=== PATIENT | female | born 1965 | race Caucasian/White ===

== ENCOUNTER → 2020-02-08 | Outpatient (CLI) | payer OTHER ==
--- NOTE | 2020-02-09 11:38 | MM ---
Reason for exam: screening (asymptomatic). Last mammogram was performed 1 year and 6 months ago. History: Patient is postmenopausal. Physical Findings: A clinical breast exam by your physician is recommended on an annual basis and results should be correlated with mammographic findings. MG 3D Screening Mammo W/Cad Bilateral CC and MLO view(s) were taken. Prior study comparison: August 17, 2018, mammogram. May 02, 2015, bilateral MG 3d screening mammo w/cad. April 25, 2014, bilateral MG screening mammo w CAD. The breast tissue is heterogeneously dense. This may lower the sensitivity of mammography. There is no discrete abnormality. Benign bilateral axillary lymph nodes redemonstrated. ASSESSMENT: Benign, BI-RAD 2 RECOMMENDATION: Routine screening mammogram of both breasts in 1 year.
== END | disposition home or self-care (01) ==
LOC: RADMAMWWP 09:45
PROVIDERS: ATTEND Family Medicine
DX: Z12.31 Encounter for screening mammogram for malignant neoplasm of breast (principal)
CPT/HCPCS: 77063; 77067

== ENCOUNTER → 2024-03-15 | Day surgery (SDC) | payer OTHER ==
[2024-03-10 11:15] VITALS: BMI 23.8
[~2024-03-15] MED LIST: LIDOCAINE 1% (10MG/ML) FOR IV START INTRADERMA PRN; PROPOFOL 10 MG/ML 20 ML VIAL IV ONE
[2024-03-15] MEDS: LACTATED RINGERS 1,000 ML IV SCH (14:34)
[2024-03-15 14:36] VITALS: TEMP 97.6
--- NOTE | 2024-03-15 15:21 | P.GSHP ---
History of Present Illness H&P Date: 03/15/24 Chief Complaint: Screening colonoscopy This is a 58-year-old female presents today for screening colonoscopy. Patient denies any significant GI complaints. Past Medical History Past Medical History: GERD/Reflux, Musculoskeletal Disorder Additional Past Medical History / Comment(s): SEASONAL ALLERGIES. Bilateral carpal tunnel. History of Any Multi-Drug Resistant Organisms: None Reported Past Surgical History: Hernia Repair, Hysterectomy, Tubal Ligation Additional Past Surgical History / Comment(s): Right middle finger trigger fin prasanth release. Past Anesthesia/Blood Transfusion Reactions: Postoperative Nausea & Vomiting (PONV) Additional Past Anesthesia/Blood Transfusion Reaction / Comment(s): Mother PONV. Smoking Status: Never smoker - Past Family History Mother Family Medical History: No Reported History Medications and Allergies Home Medications Medication Instructions Recorded Confirmed Type Calcium Carbonate [Calcium] 600 mg PO DAILY 05/11/15 03/15/24 History Multivit with Calcium,Iron,Min 1 each PO DAILY 05/11/15 03/10/24 History [Women's Daily Multivitamin] Cholecalciferol [Vitamin D3 (25 50 mcg PO DAILY 03/10/24 03/15/24 History Mcg = 1000 Iu)] FLUoxetine HCL 40 mg PO 1200 03/10/24 03/15/24 History Loratadine-Pseudoeph 10-240 mg 1 tab PO DAILY 03/10/24 03/15/24 History [Claritin-D 24 Hour] Allergies Allergy/AdvReac Type Severity Reaction Status Date / Time Sulfa (Sulfonamide Allergy Rash/Hives Verified 03/15/24 14:17 Antibiotics) Surgical - Exam Vital Signs Temp Pulse Resp BP Pulse Ox 97.6 F 64 18 119/57 99 03/15/24 14:29 03/15/24 14:29 03/15/24 14:29 03/15/24 14:29 03/15/24 14:29 - General well developed, well nourished, no distress - Eyes PERRL - ENT normal pinna - Neck no masses - Respiratory normal expansion - Cardiovascular Rhythm: regular - Abdomen Abdomen: soft, non tender Assessment and Plan Assessment: Will perform screening colonoscopy
--- NOTE | 2024-03-15 15:41 | P.OP ---
Date of Procedure: 03/15/24 Preoperative Diagnosis: Screening colonoscopy Postoperative Diagnosis: Diverticulosis Procedure(s) Performed: Colonoscopy Anesthesia: MAC Surgeon: Ernie Wiggins Pathology: none sent Condition: stable Disposition: PACU Description of Procedure: The patient was placed on the endoscopy table in the lateral position. She received IV sedation. Digital rectal exams performed which revealed no abnormality. Flexible colonoscope was then placed patient anus passed throughout the entire colon. The ileocecal valve was visualized. The cecum, ascending and transverse colon appeared normal. In the descending and sigmoid colon there is mild diverticular changes. The scope was then brought back to the rectum this appeared normal. Scope withdrawn for the patient.
[2024-03-15 15:51] VITALS: BP 115/72; PULSE 62; RESP 14
== END | disposition home or self-care (01) ==
LOC: ORWHC2ENDO 13:15
PROVIDERS: ATTEND Surgery
DX: Z12.11 Encounter for screening for malignant neoplasm of colon (principal); K57.30 Diverticulosis of large intestine without perforation or abscess without bleeding; K21.9 Gastro-esophageal reflux disease without esophagitis; F41.9 Anxiety disorder, unspecified; Z88.2 Allergy status to sulfonamides; Z79.899 Other long term (current) drug therapy
CPT/HCPCS: 45378; J2704